=== PATIENT | female | born 1990 | race Caucasian/White ===

== ENCOUNTER 2016-06-15 00:09 | Emergency (ER) | payer OTHER ==
[~2016-06-15 00:09] MED LIST: COLACE100 MG PO
== END 2016-06-15 01:00 | disposition home or self-care (01) ==
LOC: ER1 00:09
DX: Z53.21 Procedure and treatment not carried out due to patient leaving prior to being seen by health care provider (principal)

== ENCOUNTER 2020-03-19 20:00 | Emergency (ER) | payer BC ==
[~2020-03-19 20:00] MED LIST changes: +BACTRIM DS TAB1 EACH PO; +COLACE 100MG C100 MG PO; +IBUPROFEN600 MG PO; +LORTAB 5-325 M1 EACH PO; +PREDNISONE 20 M20 MG PO; +PRENATABS FA T1 EACH PO
[2020-03-19 21:09] LABS: HEMOGLOBIN 12.6 gm/dl (12.3-15.3); RED BLOOD COUNT 4.53 M/UL (4.00-5.10); WHITE BLOOD COUNT 10.9 K/UL (4.5-11.0)
[2020-03-19 21:26] LABS: BUN/CREATININE RATIO 9 (0-10)
== END 2020-03-19 23:57 | disposition home or self-care (01) ==
LOC: ER1 20:00
PROVIDERS: Emergency Medicine
DX: R07.9 Chest pain, unspecified (principal)
CPT/HCPCS: 71045; 80053; 82550; 82553; 83690; 83735; 83874; 84100; 84484; 84703; 85025; 85379; 93005; 99285

== ENCOUNTER → 2020-04-11 | Outpatient (CLI) | payer BC | LOC: EXRD 12:30 | DX: R59.0 Localized enlarged lymph nodes (principal) | CPT/HCPCS: 76536 ==

== ENCOUNTER → 2020-06-01 | Outpatient (CLI) | payer BC | LOC: CT 09:47 | DX: R59.1 Generalized enlarged lymph nodes (principal); R13.10 Dysphagia, unspecified | CPT/HCPCS: 70491; Q9963 ==

== ENCOUNTER 2021-07-17 06:17 | Emergency (ER) | payer BC ==
[2021-07-17 07:14] LABS: HEMOGLOBIN 12.9 gm/dl (12.3-15.3); RED BLOOD COUNT 4.33 M/UL (4.00-5.10); WHITE BLOOD COUNT 6.2 K/UL (4.5-11.0)
[2021-07-17 07:29] LABS: BUN/CREATININE RATIO 12 (0-10)
== END 2021-07-17 11:04 | disposition left against medical advice (07) ==
LOC: ER1 06:17
PROVIDERS: Physician Assistant Medical
DX: R07.9 Chest pain, unspecified (principal); R06.02 Shortness of breath
CPT/HCPCS: 71045; 80053; 82550; 82553; 84439; 84443; 84484; 85025; 85379; 93005; 99285

== ENCOUNTER → 2021-12-03 | Outpatient (CLI) | payer BC | LOC: EXRD 10:38 | DX: M79.601 Pain in right arm (principal); M79.89 Other specified soft tissue disorders | CPT/HCPCS: 93971 ==